=== PATIENT | female | born 1985 | race African-American/Black ===

== ENCOUNTER 2024-04-30 18:31 | Emergency (ER) | payer OTHER, SELFPAY ==
--- NOTE | ~2024-04-30 | US_ITS ---
Pelvic ultrasound. Clinical History: Left ovarian cyst, pelvic pain Technique: Realtime transabdominal and transvaginal scanning of the pelvis was performed. Color flow Doppler and Doppler spectral analysis were performed. Findings: The uterus is anteverted. The endometrial stripe is partially obscured by large fundal fib roid. There is a dominant fundal fibroid which measures 9.6 x 8.8 x 7.8 cm. The right ovary measures 3.4 x 1.7 x 2.2 cm. No significant right ovarian or adnexal mass is seen. Probable left ovarian cyst measuring 3.7 x 2.8 x 3.5 cm. No definite evidence for torsion. There is no evidence of free fluid in the cul de sac. Impression: No distinct evidence for torsion. 3.7 cm ovarian cyst. Dominant 9.6 cm fundal fibroid. Reviewed, dictated and finalized at [facility]. Impression: No distinct evidence for torsion. 3.7 cm ovarian cyst. Dominant 9.6 cm fundal fibroid.
--- NOTE | ~2024-04-30 | CT_ITS ---
EXAMINATION: CT abdomen pelvis w con DATE: 04/30/2024 23:59 INDICATION: Lower abdominal pain. Nausea and vomiting. TECHNIQUE: Computed tomography (CT) of the abdomen and pelvis was performed with 100 mL Omnipaque 350 intravenous contrast. Automated exposure control and iterative reconstruction technique were employe d. The dose-length product was 1026.86 mGy-cm. COMPARISON: CT abdomen and pelvis 03/26/2017 FINDINGS: The visualized portions of the lung bases are clear without pneumonia or pleural effusion. The heart size is normal. No pericardial effusion. The liver, gallbladder, spleen, pancreas, and righ t adrenal gland are normal. There is a 15 mm mass in left adrenal gland measuring soft tissue attenua tion. There is cortical thinning of the kidneys. There is diverticulosis of the colon without evidenc e of diverticulitis. There are no dilated loops of bowel. The appendix is normal. There are no pathol ogically enlarged lymph nodes. There is no free intraperitoneal fluid. There is a 9.9 cm subserosal u terine fibroid. There is a 3.6 cm cyst in left ovary. There is mild thoracic and lumbar spondylosis. IMPRESSION: 1. 9.9 cm uterine fibroid. 2. 3.6 cm cyst in left ovary, likely a follicular cyst. 3. 15 mm left adrenal mass. In the absence of known malignancy, this finding is likely an adenoma. Reviewed, dictated and finalized at location E.
[2024-04-30 18:32] VITALS: BP 142/99; PULSE 114; RESP 20; TEMP 36.7; O2SAT 100
--- NOTE | 2024-04-30 20:12 | PC.NURSE ---
Pt has went to restroom, then pulled assistance cord. Boyfriend came to desk to tell this RN that pt was on the floor in restroom and could not get back up. Pt states that she became dizzy and sat herself on the floor to keep from falling.
[2024-04-30 20:13] VITALS: BP 116/77; PULSE 118; RESP 20; O2SAT 100
--- NOTE | 2024-04-30 21:34 | ED.ABDPAIN ---
HPI - Abdominal Pain General Chief Complaint: Abdominal Pain <BRIANNA Fuller Last Filed: 05/01/24 11:59> Stated Complaint: abd pain <BRIANNA Fuller Last Filed: 05/01/24 11:59> Time Seen by Provider: 04/30/24 20:39 <BRIANNA Fuller Last Filed: 05/01/24 11:59> Source: patient <BRIANNA Fuller Last Filed: 05/01/24 11:59> Mode of arrival: ambulatory <BRIANNA Fuller Filed: 05/01/24 11:59> Limitations: no limitations <BRIANNA Fuller Last Filed: 05/01/24 11:59> History of Present Illness HPI narrative: patient is a 38-year-old female who presents the ED with report of nausea, vomiting, hematemesis. Patient reports she has had persistent nausea and vomiting over the last 3 days, unable to keep down any food or drink. She reports history of similar symptoms in the past, episode in 2017 which required admission to the hospital. She reports today, she began vomiting streaks of blood after an episode of forceful emesis. She reports approximally 7 tbsp of dark red blood. Complains of intermittent lower abdominal cramping, but does note she is currently on her menstrual cycle. States the previous episode occurred while she was on her menstrual cycle as well. Denies diarrhea, constipation. Last bowel movement this morning and normal. Denies fevers, urinary complaints. <BRIANNA Fuller Last Filed: 05/01/24 11:59> Related Data Allergies/Adverse Reactions: Allergies Allergy/AdvReac Type Severity Reaction Status Date / Time No Known Allergies Allergy Unknown Verified 03/27/17 10:12 <BRIANNA Fuller Last Filed: 05/01/24 11:59> Review of Systems Review of Systems: CONSTITUTIONAL: Denies fever, chills, or sweats. GASTROINTESTINAL: See HPI. GENITOURINARY: Denies dysuria or hematuria. <BRIANNA Fuller Last Filed: 05/01/24 11:59> All systems reviewed & are unremarkable except as noted in HPI and below <Michaela Cao PA-C - Last Filed: 05/01/24 11:59> Exam Narrative: GENERAL: Ill-appearing, obese with BMI of 38.1, in mild acute distress, actively dry heaving on exam. HEAD: Normocephalic, atraumatic. RESPIRATORY: Airway patent, respirations nonlabored. Clear to auscultation bilaterally, no rales, rhonchi, wheezing. CARDIOVASCULAR: Tachycardic with regular rhythm without murmurs, rubs, or gallops. ABDOMINAL: Soft, mild tenderness throughout lower abdomen. No rebound, nondistended. Normoactive BS. MUSCULOSKELETAL: Moves all extremities. No gross deformities. SKIN: Warm, dry, normal color. NEURO: A&O X3. Speech clear. Cranial nerves II-XII grossly intact. Steady gait. No ataxic movements. PSYCHIATRIC: Appropriate mood and affect. Normal interaction. <Michaela Cao PA-C - Last Filed: 05/01/24 11:59> Course VISUAL DISPLAY ASSOCIATE/PA Physician Supervision I agree with midlevel documentation; I performed the medical decision making component of this evaluation. <Aspen Best MD - Last Filed: 05/01/24 07:24> Reevaluation(s) Reevaluation #1: Patient Ultrasound has returned, it does show the fibroids, cyst, no obvious signs of torsion. Patient does appear much more comfortable, she states that she will follow-up with her OBGYN and asking if she can possibly given hysterectomy for symptoms. I have let her know she can return for any further issues and she is agreeable to this plan. <Aspen Best MD - Last Filed: 05/01/24 07:24> Vital Signs Vital signs: Vital Signs Temperature 98.0 F 04/30/24 18:32 Pulse Rate 114 H 04/30/24 18:32 Respiratory Rate 20 04/30/24 18:32 Blood Pressure 142/99 H 04/30/24 18:32 Pulse Oximetry 100 04/30/24 18:32 Oxygen Delivery Room Air 04/30/24 18:32 Temperature 98.0 F 04/30/24 18:32 Pulse Rate 102 H 05/01/24 06:31 Respiratory Rate 16 05/01/24 06:31 Blood Pressure 140/95 H 05/01/24 06:
[2024-04-30] MEDS: PANTOPRAZOLE SODIUM IV 40 MG VIAL IV PUSH (22:34)
[2024-04-30] MEDS: ONDANSETRON INJ 4 MG/2 ML VIAL IV PUSH (22:34)
[2024-04-30] MEDS: SODIUM CHLORIDE 0.9% IV 1,000 ML 999 ML IV CONT ×2 (22:34→22:35)
[2024-04-30 22:43] LABS: Basophils Percent Auto 0.3 % (0.2-1.2); Hematocrit 38.5 % (37.0-47.0); Hemoglobin 11.8 g/dL (12.0-15.0); Immature Granulocyte Absolute 0.07 K/mm3 (0.00-0.031); Immature Granulocyte Percent A 0.5 % (0-0.5); Lymphocytes Absolute Auto 1.63 K/mm3 (0.9-3.2); Mean Corpuscular HGB Conc 30.6 g/dl (32-36); Mean Corpuscular Hemoglobin 23.4 pg (26-34); Mean Corpuscular Volume 76.2 fl (80-100); Mean Platelet Volume 9.4 fl (7.4-10.4); Monocytes Absolute Auto 1.1 K/mm3 (0.1-0.6); Monocytes Percent Auto 7.3 % (2.6-8.5); Neutrophils Percent Auto 80.9 % (45.5-73.1); Platelet Count Result 517 k/mm3 (150-375); Red Blood Count 5.05 M/mm3 (4.2-5.4); White Blood Count 14.8 K/mm3 (4.5-10.0)
--- NOTE | 2024-04-30 22:50 | PC.NURSE ---
rn x 2 with 5 unsuccessful ng insertion attempts
[2024-04-30 22:57] LABS: Alanine Aminotransferase 14 U/L (6-35); Alkaline Phosphatase 89 U/L (38-126); Anion Gap 13 mmol/L (4-12); Aspartate Amino Transferase 21 U/L (14-36); Bilirubin,Total 0.9 mg/dL (0.2-1.3); Blood Urea Nitrogen 13 mg/dL (7-17); Calcium 9.6 mg/dL (8.4-10.2); Carbon Dioxide 31 mmol/L (22-30); Chloride 96 mmol/L (98-107); Estimated CRCL calculation 84 ml/min; Estimated Glomerular Filt Rate > 60; Glucose 155 mg/dL (65-110); Lipase 88 U/L (23-300); Potassium 2.9 mmol/L (3.4-5.0); Sodium 140 mmol/L (137-145)
[2024-04-30 22:57] LABS: Lactic Acid Reflex 1.3 mmol/L (0.7-2.0)
[2024-04-30] MEDS: KCL 20 MEQ/SW 100 ML 100 ML 50 MEQ IVPB (23:17)
[2024-04-30 23:21] LABS: Magnesium 1.9 mg/dL (1.6-2.3)
[2024-04-30 23:43] LABS: Add Urine Microscopic? YES; Appearance Urine Clear (Clear); Bacteria Urine 4+ /hpf; Bilirubin Urine Negative (Negative); Blood Urine 2+ (Negative); Color Urine Yellow (Yellow); Glucose Urine UA Negative (Negative); Hyaline Casts Urine Present /lpf; Ketones Urine 2+ mg/dL (Negative); Leukocyte Esterase Ur Negative LEU/UL (Negative); Need Manual Microscopic Reviewed; Nitrate Urine Negative (Negative); Non Pathogenic Casts >20; Protein Urine 4+ mg/dL (Negative); Specific Grav Ur 1.032 (1.001-1.035); Squamous Epithelial Cell Urine Few /hpf (Few); Urobilinogen Urine 0.2 mg/dL (<2.0)
[2024-04-30 23:50] LABS: Amphetamine Screen Urine Negative (Negative); Barbiturate Screen Urine Negative (Negative); Benzodiazepines Screen Urine Negative (Negative); Cannabinoid Screen Urine Negative (Negative); Cocaine Screen Urine Negative (Negative); Methadone Screen Urine Negative (Negative); Opiate Screen Urine Negative (Negative); Phencyclidine Screen Urine Negative (Negative)
[2024-05-01] VITALS (22 sets, daily range): BP systolic 131–147; BP diastolic 84–95; PULSE 62–126; RESP 13–22; O2SAT 91–100
[2024-05-01] MEDS: diphenhydrAMINE HCl INJ 50 MG/ML VIAL 25 MG IV PUSH (00:27)
[2024-05-01] MEDS: METOCLOPRAMIDE HCL INJ 10 MG/2 ML VIAL IV PUSH (00:28)
--- NOTE | 2024-05-01 01:42 | PC.NURSE ---
Pt is in ultrasound at this time.
[2024-05-01] MEDS: POTASSIUM CHLORIDE 20 MEQ PACKET (FOR LIQUID) 40 MEQ PO (03:37)
== END 2024-05-01 06:30 | disposition home or self-care (01) ==
PROVIDERS: Physician Assistant; Emergency Provider Emergency Medicine
DX: N83.202 Unspecified ovarian cyst, left side (principal); E86.0 Dehydration; E87.6 Hypokalemia; D25.9 Leiomyoma of uterus, unspecified; E27.8 Other specified disorders of adrenal gland
CPT/HCPCS: 36415; 74177; 76830; 76856; 80053; 80307; 81001; 81025; 83605; 83690; 83735; 85025; 86850; 86900; 86901; 87086; 87088; 96361; 96365; 96375; 99284; A9270; J1200; J2405; J2470; J2765; J3480; J7030; Q9967

== ENCOUNTER 2024-05-31 08:09 | Outpatient (CLI) | payer OTHER, SELFPAY ==
--- NOTE | 2024-05-31 08:16 | ECG_ITS ---
Test Date: 2024-05-31 08:39:25 Measurements Intervals Campbell Rate: 57 P: -1 MT: 149 QRS: 4 QRSD: 104 T: 10 QT: 444 QTc: 435 Interpretive Statements SINUS BRADYCARDIA POOR R-WAVE PROGRESSION NONSPECIFIC T-WAVE FLATTENING ABNORMAL ELECTROCARDIOGRAM No previous ECG available for comparison Electronically Signed On 05-31-2024 15:00:07 CDT by Philippe Atkins M.D.
[2024-05-31 09:31] LABS: Anion Gap 11 mmol/L (4-12); Blood Urea Nitrogen 10 mg/dL (7-17); Calcium 8.7 mg/dL (8.4-10.2); Carbon Dioxide 27 mmol/L (22-30); Chloride 99 mmol/L (98-107); Estimated Glomerular Filt Rate > 60; Glucose 130 mg/dL (65-110); Potassium 3.4 mmol/L (3.4-5.0); Sodium 137 mmol/L (137-145)
== END 2024-05-31 08:10 | disposition home or self-care (01) ==
PROVIDERS: Anesthesiology; PCP Physician Assistant; Visit Provider Obstetrics & Gynecology
DX: N92.0 Excessive and frequent menstruation with regular cycle (principal); R10.2 Pelvic and perineal pain; Z79.899 Other long term (current) drug therapy; I10 Essential (primary) hypertension
CPT/HCPCS: 36415; 80048; 86850; 86900; 86901; 93005

== ENCOUNTER 2024-06-06 01:52 | Day surgery (SDC) | payer OTHER, SELFPAY ==
[2024-05-30 13:35] VITALS: BMI 36.4
--- NOTE | 2024-05-30 13:36 | PC.NURSE ---
Report to the Outpatient Waiting Room, entrance under the green pavilion located off [facility], at time _1pm_ on date _[id number]_. Planned Procedure Time: _3pm_. Time changes happen often and if your time is changed the preop area will call you the afternoon before. - You and your visitor will be asked to self-screen and do not enter if you have any COVID symptoms. - A mask is optional within the hospital at this time. Patients may have clear liquids (water, carbonated beverages, clear teas, apple juice) until 3 hours prior to surgery with a maximum of 20 ounces. - No food from midnight until time of surgery Take the following medications with a SIP of water the morning of surgery: __Amlodipine DO NOT STOP ANY OF YOUR OTHER PRESCRIPTION MEDICATIONS PRIOR TO SURGERY ?EXCEPT THE FOLLOWING Medications to discontinue per physician Multivitamin Date to take last dose Please no make-up, nail citizen of [place], hairspray, perfume, deodorant, or body powder the day of surgery. No jewelry (including any body piercings) or valuables the day of surgery, leave them at home. Please take a shower or bath the night before, or the morning of, surgery with an antibacterial soap. Wear comfortable, loose fitting clothing. - Jewelry must be removed prior to entering the operating room. Rings and piercings that are not removed may be cut off. - The hospital will not accept responsibility for valuables. - Please leave all valuables, including medications, at home the day of surgery. If you are going home after surgery, a licensed rolloff driver must drive you home. - NO public transportation without another adult if you receive anesthesia. - We recommend that an adult stay with you for 24 hours following discharge. - We also recommend that you do not drive, make important decision, drink alcoholic beverages, or take any drugs that were not prescribed by your health care provider for at least 24 hours after your discharge time. Follow any additional instructions given to you from your surgeon. If you or anyone in your household have experienced Covid symptoms in the past week, please notify your surgeon or the nurse liaison at the phone number below for possible testing. Telephone instructions given to __Ciera___and asked if any additional questions and then verbalized understanding. Patient advised to call surgeon office or pre surgery nurse liaison [phone] if any additional questions.
[2024-06-06] VITALS (10 sets, daily range): BP systolic 132–142; BP diastolic 75–92; PULSE 66–89; RESP 12–20; TEMP 36.3–36.7; O2SAT 99–100; BMI 37.0
--- NOTE | 2024-06-06 11:45 | PM.IMHP ---
H&P: HPI History of Present Illness Date/Time: 06/06/24 11:45 Chief Complaint: Heavy bleeding Narrative: 38 y/o with heavy, painful periods. Ultrasound exam shows a 9.6 cm fundal uterine fibroid. There was also a 3.6 cm left adnexal cyst. Endometrial biopsy was benign. She desires definitive management with hysterectomy. Review of Systems Review of Systems: All systems reviewed & are unremarkable except as noted in HPI and below PMFSH Past Medical History Medical History (Updated 06/06/24 @ 11:48 by Bright Rushing MD) Chronic hypertension Surgical History Surgical History History of delivery Social History Social History Smoking status: Never smoker Alcohol intake: current Living arrangements: with family Spiritual care concerns: No Meds Home Medications and Allergies Home Medications Medication Instructions Recorded Confirmed Type amlodipine 10 mg tablet 10 mg PO DAILY 05/30/24 05/30/24 History hydrochlorothiazide 25 mg tablet 25 mg PO DAILY 05/30/24 05/30/24 History multivitamin 1 tablet PO DAILY 05/30/24 05/30/24 History Allergies Allergy/AdvReac Type Severity Reaction Status Date / Time No Known Allergies Allergy Unknown Verified 05/30/24 13:26 Exam Const: Orientation/consciousness: patient oriented x3 Other: Well-developed, well-nourished female in no acute distress. Neck: Thyroid: thyroid normal Lymphatic: no lymphadenopathy noted (in neck, axilla or inguinal nodes) Resp: Effort & Inspection: normal respiratory effort Auscultation: clear to auscultation bilaterally Cardio: Rate: regular rate Rhythm: regular rhythm Heart sounds: S1 normal heart sound present and S2 normal heart sound present GI: Other: ABD: Soft, nontender, nondistended. No guarding or rebound tenderness. No hepatosplenomegaly. : General: Yes no CVA tenderness Other: External genitalia: normal female hair distribution, without lesion. Urethral meatus: no lesion, non prolapsed. Bladder: no mass, nontender Vagina: well-estrogenized, without lesion or discharge. No cystocele or rectocele. Cervix: no lesion or discharge. Uterus: enlarged, consistent with 12 weeks size Adnexa: no mass or tenderness. Anus/perineum: no lesions, nontender Back/Spine/Pelvis: Back: no CVA tenderness Skin: General skin exam: normal color and no rashes or lesions noted Neuro: General: patient oriented x3 Extrem: Other: Extremities: nontender with no edema Psych: Mental Status: mental status grossly normal Affect: normal affect Assessment and Plan Assessment and plan (1) Menometrorrhagia: Code(s): N92.1 - Excessive and frequent menstruation with irregular cycle Status: Acute Assessment and Plan: A: Menometrorrhagia with dysmenorrhea in setting of fibroid uterus. P: We have reviewed medical as well as surgical management, and she desires definitive surgical management with hysterectomy. Specifically, I have offered her robotic-assisted vaginal hysterectomy with bilateral salpingectomies. We will evaluate the ovaries, but expect to leave them in situ. She understands hysterectomy will render her permanently sterile. She understands risks of surgery to include risks of anesthesia, risks of pain, infection, bleeding, blood products, thromboembolic phenomena and damage to adjacent structures such as bowel, bladder, ureters, blood vessels and nerves. She understands all these risks and elects to proceed with surgery. (2) Dysmenorrhea: Code(s): N94.6 - Dysmenorrhea, unspecified Status: Acute (3) Uterine fibroid: Qualifiers: Uterine leiomyoma location: unspecified location Qualified Code(s): D25.9 - Leiomyoma of uterus, unspecified Code(s): D25.9 - Leiomyoma of uterus, unspecified Status: Inactive
[2024-06-06] MEDS: LACTATED RINGERS 1,000 ML 30 ML IV CONT ×2 (13:30→18:21)
[2024-06-06] MEDS: KETOROLAC 15 MG/ML VIAL (*BKC) IV PUSH (13:35)
[2024-06-06] MEDS: ACETAMINOPHEN 500 MG TABLET 1000 MG PO (13:35)
[2024-06-06 14:27] LABS: BEDSIDEPREGUCG Negative
--- NOTE | 2024-06-06 15:18 | P.PNAN_ITS ---
Anes - Initial Pre Proc Eval Procedure: Operation Date: 06/06/24 15:00 Proposed Procedures p Robotic Assisted Total Vaginal Hysterectomy with Bilateral Salpingectomy - Bright Rushing MD Date/Time: 06/06/24 15:18 Surgeon: Bright Rushing MD Pre Op Diagnosis: excessive bleeding,pelvic pain, enlarged uterus, Patient Data Age: 38 Gender: F Height: 1.63 m Weight: 97.95 kg Last Vital Signs Temp 36.7 C 06/06/24 12:45 Pulse 66 06/06/24 12:45 Resp 18 06/06/24 12:45 BP 137/92 H 06/06/24 12:45 Pulse Ox 100 06/06/24 12:45 O2 Del Method Room Air 06/06/24 12:45 Allergies Allergy/AdvReac Type Severity Reaction Status Date / Time No Known Allergies Allergy Unknown Verified 06/06/24 13:04 Home Medications Medication Instructions Recorded Confirmed Type amlodipine 10 mg tablet 10 mg PO DAILY 05/30/24 06/06/24 History hydrochlorothiazide 25 mg tablet 25 mg PO DAILY 05/30/24 05/30/24 History multivitamin 1 tablet PO DAILY 05/30/24 06/06/24 History Laboratory Tests 06/06/24 13:05 POC Urine HCG, Qual Negative POC Ur Preg QC Yes Patient hx anesthesia problems: none Family hx anesthesia problems: none Results Review: All pre-operative results and documents have been reviewed as part of the pre- operative evaluation. [facility] Past Medical History Medical History Chronic hypertension Surgical History Surgical History History of delivery Social History Social History Smoking status: Never smoker Alcohol intake: current Living arrangements: with family Spiritual care concerns: No Anes - Eval Final PreProcedure Day of Procedure 06/06/24 15:18 Patient weight: obese Heart: regular rate and rhythm Lungs: clear to auscultation Airway: Mallampati scale class II Neurological: alert and oriented Last oral intake: >/= 8 hours ASA classification: II Emergent: no Anesthetic plan: proceed Anesthesia type and monitoring: general ETT and standard monitoring Results Review: All pre-operative results and documents have been reviewed as part of the pre- operative evaluation. Informed Consent: The patient's anesthetic plan and its attendant risks and benefits were discussed with the patient/family/POA. Questions were solicited and answers provided to the satisfaction of the patient/family/POA.
--- NOTE | 2024-06-06 15:46 | WPDHPUPDATE1 ---
History and Physical Update Update Date/Time: 06/06/24 15:46 History and Physical has been reviewed, including an updated exam of the patient. There are NO changes in the patient's condition. Risks, benefits, and alternatives have been discussed and questions answered. Patient agrees to proceed with procedure.
[2024-06-06] MEDS: ceFAZolin 2 GM/D5W 50 ML 2 GM/50 ML BAG IVPB (15:51)
--- NOTE | 2024-06-06 18:15 | W.PM.PROC2 ---
Procedure Note - Detailed Date of Procedure 06/06/24 Pre-op Diagnosis Fibroid uterus Menorrhagia Dysmenorrhea Post-op Diagnosis Same Procedure Performed Robotic assisted total vaginal hysterectomy with bilateral salpingectomies Surgeon Bright Rushing MD Anesthesia General Findings Large, fibroid uterus. Normal-appearing tubes and ovaries bilaterally. Description of Procedure The patient was taken to the operating room where general endotracheal anesthesia was administered. She was prepared and draped in the usual sterile fashion in the dorsal lithotomy position. The bladder was drained with Basilio catheter. The cervix was visualized and the anterior lip was grasped using a single-tooth tenaculum. The cervix was gently dilated using Hegar dilators. The MONICA 2 uterine manipulator was then placed and the tenaculum was removed. Gloves were changed and attention was turned to the abdomen. A supraumbilical skin incision was made with the scalpel. The Veress needle was advanced and pneumoperitoneum was administered using carbon dioxide gas. The bladeless trocar was then advanced. Intraperitoneal placement was confirmed using the laparoscope. Lateral ports and an assistant administrator port were all placed using bladeless trocars under direct laparoscopic visualization. She was placed in Trendelenburg position and the patient cart was docked. I assumed the console. The ureters were visualized bilaterally. The round ligament on the right was divided. The Fallopian tube was dissected off the ovary and the uteroovarian ligament was divided. The broad ligament was divided, skeletonizing the uterine artery on the right. The bladder was reflected away. The left side was similarly dissected. Colpotomy was performed circumferentially. The specimen was very large, making for very difficult delivery through the vagina. It was cored with a scalpel and removed, and was passed off to be sent to pathology. The vaginal cuff was reapproximated using 0 Vicryl in interrupted [id number] fashion. The pelvis was irrigated copiously using warmed normal saline. Rigorous hemostasis was assured. HemaDerm was applied to the vaginal cuff. The pedicles were inspected once again. The ports were then withdrawn and the gas was allowed to escape. The skin incisions were reapproximated using 4 0 Monocryl in interrupted subcuticular fashion. Dermaflex was applied externally. A laceration to the left labium minus was reapproximated with a single figure of eight suture of 3-0 vicryl. Sponge, lap, needle and instrument counts were correct. The patient was awakened and taken to the recovery room in stable condition. I was present and scrubbed through the entire procedure. Implants None Estimated Blood Loss 100 Drains Yes (basilio) Packing No Pathology Yes (Uterus, cervix, bilateral Fallopian tubes) Complications None Condition Stable Disposition PACU
--- NOTE | 2024-06-06 18:20 | PM.DS ---
DS: Admitting Diagnosis Discharge Date 06/07/24 Admitting Diagnosis Fibroid uterus Menorrhagia Dysmenorrhea DS: Discharge Diagnosis Discharge Diagnosis (1) Dysmenorrhea: Code(s): N94.6 - Dysmenorrhea, unspecified Status: Acute (2) Menometrorrhagia: Code(s): N92.1 - Excessive and frequent menstruation with irregular cycle Status: Acute (3) Uterine fibroid: Qualifiers: Uterine leiomyoma location: unspecified location Qualified Code(s): D25.9 - Leiomyoma of uterus, unspecified Code(s): D25.9 - Leiomyoma of uterus, unspecified Status: Inactive DS: Summary Hospital Course Hospital Course: Admitted on the date of scheduled surgery. Underwent robotic assisted TVHBS, did well postop. Able to go home the next day. Time Spent with Patient Time attestation: Total time spent providing and/or coordinating discharge services: DS: Data Data Completed and Pending Pending studies at discharge: Pending at discharge 06/06/24 17:37 Surgical [PTH] Routine Labs on day of discharge: Labs from last 24 hours 06/06/24 13:05 POC Urine HCG, Qual Negative POC Ur Preg QC Yes Discharge Plan Discharge Attending physician on discharge: Bright Rushing Discharging Clinician: Bright Rushing Patient Disposition: Home, Self-Care Activity: may shower, may drive after 2 weeks and pelvic rest Diet: regular Discharge Instructions: Call or return if temperature above 100.4? F, increased abdominal pain, increased vaginal bleeding or any new problems. Stand Alone Forms: General Discharge Instructions Follow-up/Referrals: Bright Rushing MD [Physician] - 2 Weeks Discharge Medications: New hydrocodone-acetaminophen 5-325 mg tablet 1 - 2 tablet PO Q6H PRN (Reason: pain) Qty: 30 0RF Continued multivitamin [Daily Multivitamin] Tablet 1 tablet PO DAILY amlodipine 10 mg tablet 10 mg PO DAILY hydrochlorothiazide 25 mg tablet 25 mg PO DAILY Date of admission: 06/06/24 19:41 Primary Care Provider: Shelby,Isabel Admitting Provider: Bright Rushing Attending physician on admission: Bright Rushing Condition: Stable
[2024-06-06] MEDS: fentaNYL CITRATE INJ (*CRX) 100 MCG/2 ML VIAL 25 MCG IV PUSH ×4 (18:40→19:13)
--- NOTE | 2024-06-06 20:05 | OBPPTRN ---
Patient transferred to post room #286 via stretcher @ 2004. Oriented to unit, room, information board, rooming in, admission packet and security measures. Patient verbalizes understanding.
[2024-06-06] MEDS: DEXTROSE 5%/0.45% SOD CHL 1,000 ML 125 ML IV CONT (20:26)
[2024-06-06] MEDS: METOCLOPRAMIDE HCL INJ 10 MG/2 ML VIAL IV PUSH (20:26)
[2024-06-06] MEDS: MORPHINE SULFATE (*CRX) 4 MG/ML INJ IV PUSH (20:27)
[2024-06-06] MEDS: ONDANSETRON INJ 4 MG/2 ML VIAL IV PUSH (22:18)
[2024-06-06] MEDS: ENOXAPARIN 40 MG/0.4 ML SYRINGE SUB-Q (22:55)
[2024-06-07 00:30] VITALS: BP 172/110; PULSE 94; RESP 18; TEMP 37.4; O2SAT 100
[2024-06-07 00:48] VITALS: PULSE 94
[2024-06-07] MEDS: LABETALOL HCL 100 MG TABLET 200 MG PO (00:48)
[2024-06-07 03:56] VITALS: BP 137/83; PULSE 87; RESP 12; TEMP 37.2; O2SAT 99
[2024-06-07] MEDS: DEXTROSE 5%/0.45% SOD CHL 1,000 ML 125 ML IV CONT (04:04)
[2024-06-07] MEDS: HYDROcodone/acetaminophen (*CRX) 10-325 MG TABLET 1 TAB PO (07:38)
[2024-06-07] MEDS: IBUPROFEN 600 MG TABLET PO (07:38)
[2024-06-07] MEDS: SIMETHICONE 80 MG TAB.CHEW PO ×2 (07:38→11:44)
[2024-06-07] MEDS: hydroCHLOROthiazide 25 MG TABLET PO (07:39)
[2024-06-07] MEDS: amLODIPine BESYLATE 10 MG TABLET PO (07:39)
[2024-06-07 08:40] VITALS: BP 113/71; PULSE 78; RESP 16; TEMP 37.1; O2SAT 100
--- NOTE | 2024-06-07 09:10 | PM.GYNPNOP ---
MARKETING ANALYTICS MANAGER - A/P Assessment and plan (1) Uterine fibroid: Qualifiers: Uterine leiomyoma location: unspecified location Qualified Code(s): D25.9 - Leiomyoma of uterus, unspecified Code(s): D25.9 - Leiomyoma of uterus, unspecified Status: Inactive Assessment and Plan: A: POD#1 s/p robotic assisted TVHBS. Doing well. P: Home today to f/u 2 weeks in the office. Postoperative Procedures: Procedures Operation Date: 06/06/24 15:00 Actual Procedure Side Surgeon p Robotic Assisted Total Vaginal Hysterectomy with Bilateral Salpingectomy Bilateral Bright Rushing MD Postoperative day: 1 Time Spent With Patient Time with patient: less than 15 minutes MARKETING ANALYTICS MANAGER- PN:Subj Post-Op Subjective Date/time seen: 06/07/24 09:10 Interval history: Pain OK. Tolerating diet. Voiding. Would like to go home. Exam Narrative: AVSS I/O OK ABD soft, nontender. Incisions c/d/i. EXT nontender H/H still pending MARKETING ANALYTICS MANAGER - PN: Obj Data Vital Signs Vital Signs: Vital Signs - 24 hr 06/06/24 12:45 06/06/24 18:21 06/06/24 18:30 Temperature 36.7 C 36.3 C L Pulse Rate 66 85 Respiratory Rate 18 16 Blood Pressure 137/92 H 133/75 Pulse Oximetry 100 100 100 Oxygen Delivery Room Air Simple Face Mask Simple Face Mask Oxygen Flow Rate 8 8 06/06/24 18:35 06/06/24 18:50 06/06/24 19:05 Temperature Pulse Rate 78 87 89 Respiratory Rate 15 16 18 Blood Pressure 140/90 142/85 H 139/84 Pulse Oximetry 100 100 99 Oxygen Delivery Simple Face Mask Room Air Room Air Oxygen Flow Rate 8 06/06/24 19:20 06/06/24 19:35 06/06/24 19:41 Temperature Pulse Rate 83 84 83 Respiratory Rate 19 20 19 Blood Pressure 132/77 133/84 132/77 Pulse Oximetry 99 100 100 Oxygen Delivery Room Air Room Air Room Air Oxygen Flow Rate 06/06/24 20:28 06/07/24 00:48 06/07/24 00:30 Temperature 36.4 C 37.4 C Pulse Rate 87 94 94 Respiratory Rate 12 18 Blood Pressure 137/79 172/110 H Pulse Oximetry 100 100 Oxygen Delivery Oxygen Flow Rate 06/07/24 03:56 Temperature 37.2 C Pulse Rate 87 Respiratory Rate 12 Blood Pressure 137/83 Pulse Oximetry 99 Oxygen Delivery Oxygen Flow Rate Intake/Output Intake/Output: Intake & Output 06/04/24 06/05/24 06/06/24 06/07/24 23:59 23:59 23:59 23:59 Intake Total 200 795.8 Output Total 400 2175 Balance -200 -1379.2 Meds/Results Medications: Active Medications Generic Name Dose Route Start Last Admin Trade Name Freq PRN Reason Stop Dose Admin Hydrocodone Bitart/Acetaminophen 1 tab 06/06/24 19:41 Hydrocodone/Acetaminophen (*Crx) 5-325 Mg Tablet PO Q3H PRN Pain Rated 5 or Less Hydrocodone Bitart/Acetaminophen 1 tab 06/06/24 19:41 06/07/24 07:38 Hydrocodone/Acetaminophen (*Crx) 10-325 Mg Tablet PO 1 tab Q3H PRN Administration Pain Rated 6 or Greater Amlodipine Besylate 10 mg 06/07/24 09:00 06/07/24 07:39 Amlodipine Besylate 10 Mg Tablet PO 10 mg DAILY ADDIE Administration Bisacodyl 10 mg 06/06/24 19:41 Bisacodyl 10 Mg Suppository RECTAL ONCE PRN Constipation Enoxaparin Sodium 40 mg 06/06/24 23:00 06/06/24 22:55 Enoxaparin 40 Mg/0.4 Ml Syringe SUB-Q 40 mg DAILY ADDIE Administration Hydrochlorothiazide 25 mg 06/07/24 09:00 06/07/24 07:39 Hydrochlorothiazide 25 Mg Tablet PO 25 mg DAILY ADDIE Administration Dextrose/Sodium Chloride 1,000 mls @ 125 mls/hr 06/06/24 19:41 06/07/24 04:04 Dextrose 5% Sodium Chloride 0.45% IV CONT 125 mls/hr .Q8H ADDIE Administration Ibuprofen 600 mg 06/06/24 19:41 06/07/24 07:38 Ibuprofen 600 Mg Tablet PO 600 mg Q6H PRN Administration Cramping Metoclopramide HCl 10 mg 06/06/24 19:41 06/06/24 20:26 Metoclopramide Hcl Inj 10 Mg/2 Ml Vial IV PUSH 10 mg Q6H PRN Administration Nausea Morphine Sulfate 4 mg 06/06/24 19:41 06/06/24 20:27 Morphine Sulfate (*Crx) 4 Mg/Ml Inj IV PUSH 4 mg
[2024-06-07 12:41] VITALS: BP 102/65; PULSE 88; RESP 16; TEMP 37; O2SAT 99
[2024-06-07 12:46] LABS: Basophils Percent Auto 0.2 % (0.2-1.2); Eosinophils Percent Auto 0.1 % (0-4.4); Hematocrit 26.1 % (37.0-47.0); Hemoglobin 8.3 g/dL (12.0-15.0); Immature Granulocyte Absolute 0.08 K/mm3 (0.00-0.031); Immature Granulocyte Percent A 0.5 % (0-0.5); Lymphocytes Absolute Auto 2.68 K/mm3 (0.9-3.2); Lymphocytes Percent Auto 15.5 % (18.3-44.2); Mean Corpuscular HGB Conc 31.8 g/dl (32-36); Mean Corpuscular Hemoglobin 24.8 pg (26-34); Mean Corpuscular Volume 77.9 fl (80-100); Monocytes Absolute Auto 1.1 K/mm3 (0.1-0.6); Monocytes Percent Auto 6.3 % (2.6-8.5); Neutrophils Absolute Auto 13.3 K/mm3 (1.3-6.7); Neutrophils Percent Auto 77.4 % (45.5-73.1); Platelet Count Result 415 k/mm3 (150-375); Red Blood Count 3.35 M/mm3 (4.2-5.4); Red Cell Distribution Width 17.2 % (11.5-14.5); White Blood Count 17.2 K/mm3 (4.5-10.0)
--- NOTE | 2024-06-07 13:03 | P.PNAN_ITS ---
Anes - Prog Note Post-Op Date/Time: 06/07/24 13:03 Cardiovascular status: normal Respiratory status: normal Airway patency: baseline Mental status: baseline Post-Op hydration status: normal Vital Signs: Last Vital Signs Temp 37.0 C 06/07/24 12:41 Pulse 88 06/07/24 12:41 Resp 16 06/07/24 12:41 BP 102/65 06/07/24 12:41 Pulse Ox 99 06/07/24 12:41 O2 Del Method Room Air 06/06/24 19:41 O2 Flow Rate 8 06/06/24 18:35 Pain Score (VAS): 01/30 I/O: Intake & Output 06/06/24 06/07/24 06/07/24 23:59 07:59 15:59 Intake Total 200 795.8 Output Total 400 2175 Balance -200 -1379.2 Laboratory Tests 06/07/24 12:41 06/06/24 06/07/24 13:05 12:41 WBC 17.2 H RBC 3.35 L Hgb 8.3 L D Hct 26.1 L MCV 77.9 L MCH 24.8 L MCHC 31.8 L RDW 17.2 H Plt Count 415 H MPV 9.0 Immature Gran % (Auto) 0.5 Neut % (Auto) 77.4 H Lymph % (Auto) 15.5 L [place] % (Auto) 6.3 Eos % (Auto) 0.1 Baso % (Auto) 0.2 Lymph # (Auto) 2.68 [place] # (Auto) 1.1 H Eos # (Auto) 0.0 Baso # (Auto) 0.0 Abs Immat Gran (auto) 0.08 H Absolute Neuts (auto) 13.3 H Absolute Nucleated RBC 0.000 Nucleated RBC % 0.0 POC Urine HCG, Qual Negative POC Ur Preg QC Yes Post-procedural complaints: none Patient Feedback: Patient satisfied with anesthetic care.
== END 2024-06-07 13:07 | disposition home or self-care (01) ==
LOC: ANHSURGERY 18:21 → ANHOB2 19:44 → ANHSURGERY 19:45 → ANHOB2 06-07 12:08
PROVIDERS: PCP Physician Assistant; Visit Provider Obstetrics & Gynecology
PROC: (CPT 58554; principal; 2024-06-06 15:00)
DX: N92.1 Excessive and frequent menstruation with irregular cycle (principal); N94.6 Dysmenorrhea, unspecified; D25.9 Leiomyoma of uterus, unspecified; N87.9 Dysplasia of cervix uteri, unspecified; N80.03 Adenomyosis of the uterus; N80.01 Superficial endometriosis of the uterus; Q50.5 Embryonic cyst of broad ligament; N70.11 Chronic salpingitis; I10 Essential (primary) hypertension
CPT/HCPCS: 58554; S2900; 36415; 85025; 88307; A9270; J0360; J0690; J1100; J1650; J1885; J2250; J2270; J2405; J2704; J2765; J3010; J7030; J7120